=== PATIENT | female | born 1970 | race Hispanic/Latino ===

== ENCOUNTER 2021-05-13 11:31 | Outpatient (CLI) | payer OTHER | END 2021-05-13 11:32 | disposition home or self-care (01) | LOC: BURRAD 11:31 | PROVIDERS: ATTEND Family Medicine | DX: M25.571 Pain in right ankle and joints of right foot (principal); S82.61XA Displaced fracture of lateral malleolus of right fibula, initial encounter for closed fracture; R93.7 Abnormal findings on diagnostic imaging of other parts of musculoskeletal system ==

== ENCOUNTER 2021-06-11 14:59 | Outpatient (CLI) | payer OTHER | END 2021-06-11 15:00 | disposition home or self-care (01) | LOC: BURRAD 14:59 | PROVIDERS: ATTEND Family Medicine | DX: S82.64XD Nondisplaced fracture of lateral malleolus of right fibula, subsequent encounter for closed fracture with routine healing (principal) ==